=== PATIENT | male | born 1990 | race Caucasian/White ===

== ENCOUNTER 2016-05-29 16:30 | Emergency (ER) | payer SELFPAY | END 2016-05-29 16:49 | disposition home or self-care (01) | LOC: BURERS 16:30 | DX: H01.001 Unspecified blepharitis right upper eyelid (principal); F17.210 Nicotine dependence, cigarettes, uncomplicated | CPT/HCPCS: 99283 ==

== ENCOUNTER 2017-02-14 10:13 | Emergency (ER) | payer OTHER, SELFPAY ==
[2017-02-14 10:54] LABS: Hemoglobin 16.9 g/dL (14.0-18.0); Mean Corpuscular HGB CONC 34.6 g/dL (32.0-36.0); Mean Corpuscular Hemoglobin 31.8 pg (27.0-31.0); Mean Platelet Volume 7.7 fL (7.4-10.4); Platelet Count 214 thou/uL (130-400); RBC Distribution Width 11.8 % (11.5-14.5); White Blood Cell (WBC) Count 21.6 thou/uL (4.8-10.8)
[2017-02-14 11:10] LABS: Band 2 % (5-11); Lymphocytes 10 % (21-51); MDiff Complete? YES; Monocytes 7 % (0-10); Neutrophil 80 % (42-75); PLT Morphology Comment Appears Adequate; RBC Morphology Normal; Reactive Lymphocytes 1 % (0-10)
[2017-02-14 11:16] LABS: ALT (SGPT) 23 U/L (8-55); AST (SGOT) 23 U/L (5-34); Albumin 4.6 g/dL (3.5-5.0); Alkaline Phosphatase 69 U/L (40-150); Anion Gap 16 mmol/L (10-20); BUN (Urea Nitrogen) 11 mg/dL (8.9-20.6); Bilirubin, Total 0.9 mg/dL (0.2-1.2); Calc. Creatinine Clearance 0 mL/min (70-130); Calcium 9.6 mg/dL (7.8-10.44); Carbon Dioxide 22 mmol/L (22-29); Chloride 103 mmol/L (98-107); Estimated GFR-MDRD Greater than 90; Globulin 2.9 g/dL (2.4-3.5); Glucose 96 mg/dL (70-105); Lipase 5 U/L (8-78); Potassium 3.6 mmol/L (3.5-5.1); Protein, Total 7.5 g/dL (6.0-8.3); Sodium 137 mmol/L (136-145)
[2017-02-14 11:20] LABS: Bilirubin Negative (Negative); Blood, Urine Negative (Negative); Clarity Slightly Cloudy (Clear); Glucose, Urine (Dipstick) Negative (Negative); Leukocyte Negative (Negative); Nitrite Negative (Negative); Protein, Urine (Dipstick) Negative (Neg-Trace); Urobilinogen 0.2 mg/dL (0.2-1.0)
[2017-02-14 11:34] LABS: Amphetamine Not Detected (NotDetected); Barbiturates Screen Not Detected (NotDetected); Benzodiazepine Screen Not Detected (NotDetected); Cocaine Metabolite Screen Not Detected (NotDetected); Medtox Control Line Valid? VALID (VALID); Methadone Not Detected (NotDetected); Methamphetamine Not Detected (NotDetected); Opiate Screen Not Detected (NotDetected); Oxycodone Screen Not Detected (NotDetected); Phencyclidine (PCP) Not Detected (NotDetected); THC/Cannabinoid Screen Detected (NotDetected); Tricyclic Screen Not Detected (NotDetected)
[2017-02-14] MEDS ORDERED: Bicillin LA 1.2 MILLION UNITS/2 ML SYRINGE ONE (11:52)
--- NOTE | 2017-02-14 18:47 | RAD ---
CHEST TWO VIEWS 02/14/17 The heart is normal in size. There are no lobar consolidations or effusions. There is no vascular con gestion or edema. The mediastinum appear normal and the trachea is midline. The bony structures appea r normal. IMPRESSION: No acute thoracic finding. POS: HOME
== END 2017-02-14 12:15 | disposition home or self-care (01) ==
LOC: BURERS 10:13
DX: K29.60 Other gastritis without bleeding (principal); J02.0 Streptococcal pharyngitis; F17.210 Nicotine dependence, cigarettes, uncomplicated
CPT/HCPCS: 71020; 80053; 80306; 81003; 83690; 85025; 87430; 93005; 94760; 96372; J0561

== ENCOUNTER 2018-12-19 16:27 | Emergency (ER) | payer OTHER ==
--- NOTE | 2018-12-19 21:05 | RAD ---
RIGHT RIBS WITH PA CHEST: 12/19/18 The PA film of the chest is compared with an 02/14/17 study. There has been no adverse interval change. The heart is normal in size and the lungs are clear. There is no mediastinal widening or shift. There is no evidence of pneumothorax or pleural effusion. The r ight ribs all appear intact at this time. IMPRESSION: No acute findings. POS: HOME
== END 2018-12-19 17:20 | disposition home or self-care (01) ==
LOC: BURERS 16:27
DX: S20.211A Contusion of right front wall of thorax, initial encounter (principal); F17.210 Nicotine dependence, cigarettes, uncomplicated; W18.30XA Fall on same level, unspecified, initial encounter

== ENCOUNTER 2019-07-22 15:04 | Emergency (ER) | payer OTHER ==
--- NOTE | 2019-07-22 17:40 | RAD ---
RIGHT HAND THRE EVIEWS: 07/22/19 No definite fracture was demonstrated. The phalanges all appeared intact. There is an old healed frac ture involving the fifth metacarpal. The carpals appear normal. IMPRESSION: No acute bony finding. POS: HOME
== END 2019-07-22 16:08 | disposition home or self-care (01) ==
LOC: BURERS 15:04
DX: S60.221A Contusion of right hand, initial encounter (principal); F17.210 Nicotine dependence, cigarettes, uncomplicated; W23.0XXA Caught, crushed, jammed, or pinched between moving objects, initial encounter

== ENCOUNTER 2020-07-27 18:27 | Emergency (ER) | payer OTHER, SELFPAY | END 2020-07-27 19:20 | disposition home or self-care (01) | LOC: BURERS 18:27 | DX: G40.409 Other generalized epilepsy and epileptic syndromes, not intractable, without status epilepticus (principal); R51.9 Headache, unspecified; F17.210 Nicotine dependence, cigarettes, uncomplicated | CPT/HCPCS: 70450; 93005 ==